=== PATIENT | male | born 1940 | race Caucasian/White ===

== ENCOUNTER 2019-06-10 09:38 | Outpatient (CLI) | payer MEDICARE, BC, SELFPAY ==
--- NOTE | 2019-06-10 08:55 | DI.RAD_ITS ---
EXAM: XR KNEE LT 4V AP,LAT,MONA,PAT INDICATION: knee pain. COMPARISON: No exams were available for comparison TECHNIQUE: 2D digital imaging was performed. FINDINGS: There is mild narrowing of the medial femoral tibial joint. There is mild periarticular spurring thr oughout. There is some spurring at the quadriceps insertion on the patella. Vascular calcifications are seen. IMPRESSION: Mild degenerative changes. DATA REPOSITORY: RADIATION DOSE DELIVERED:
== END 2019-06-10 09:58 ==
PROVIDERS: PCP Neuromusculoskeletal Medicine & OMM; Referring Provider Neuromusculoskeletal Medicine & OMM; Visit Provider Student in an Organized Health Care Education/Training Program
DX: M25.562 Pain in left knee (principal); M17.12 Unilateral primary osteoarthritis, left knee; M23.91 Unspecified internal derangement of right knee; M25.561 Pain in right knee; I10 Essential (primary) hypertension
CPT/HCPCS: 99203; 73564

== ENCOUNTER 2019-09-09 08:20 | Outpatient (CLI) | payer MEDICARE, BC, SELFPAY ==
[2019-09-10 18:41] LABS: COVID-19 RT-PCR UVMMC Result Negative (Negative)
== END 2019-09-09 08:40 ==
PROVIDERS: PCP Neuromusculoskeletal Medicine & OMM; Visit Provider Student in an Organized Health Care Education/Training Program
DX: Z11.59 Encounter for screening for other viral diseases (principal); Z01.818 Encounter for other preprocedural examination
CPT/HCPCS: U0003

== ENCOUNTER 2019-09-11 08:14 | Day surgery (SDC) | payer MEDICARE, BC, SELFPAY ==
[2019-09-11] VITALS (8 sets, daily range): BP systolic 85–160; BP diastolic 44–100; PULSE 55–76; RESP 16–18; TEMP 35.6–36.5; O2SAT 93–98
--- NOTE | 2019-09-11 07:26 | HPE_ITS ---
Date of service: 09/11/19 Assessment and Plan Assessment and plan (1) Internal derangement of right knee: Status: Acute Assessment and plan: Diagnostic right knee arthroscopy with indicated intervention. Details of surgery were discussed with patient as well as risks and pertinent anatomy. All questions were answered. History of Present Illness History of Present Illness Chief Complaint: Right knee pain Narrative: Jose R comes in today for a right knee arthroscopy. He has been dealing with right knee pain for many years. He has been using anti-inflammatories and physical therapy to continue being active on his right knee in spite of the pain. He is also used injections in the past which again helped his knee and asked to maintain most of his activities. His more specific complaint is that he is unable to snowboard at this time. He says that his pain gets worse with any twisting motion against trying to go down a hill on his snowboard. X-rays in the office did not reveal significant arthritis, and he is not a candidate for an MRI due to a trochlear implant. Dr. Ospina does offer a diagnostic right knee arthroscopy with intervention as indicated. Jose R agrees with this plan and is anxious to proceed. Pertinent Surgical Information Jose R has cardiac arrhythmia on his problem list, however, he denies any history of cardiac arrhythmias. Patient denies history of CVA, [place], angina, asthma, COPD, renal or liver disorders, hepatitis, bleeding disorders, diabetes, immune or thyroid disorders. No complications from anesthesia. Review of Systems Constitutional Constitutional: Denies fever(s) ENT Ears, Nose, Mouth, and Throat: Denies dizziness and Denies sore throat Cardiovascular Cardiovascular: Denies chest pain, Denies palpitations and Denies dyspnea Respiratory Respiratory: Denies cough and Denies dyspnea Gastrointestinal Gastrointestinal: Denies abdominal pain, Denies melena, Denies hematochezia, Denies diarrhea, Denies nausea and Denies vomiting Genitourinary Genitourinary: Denies hematuria and Denies dysuria Neurologic Neurologic: Denies dizziness Endocrine Endocrine: Denies palpitations [facility] Medical History Basal cell carcinoma of skin (Acute) Cardiac arrhythmia (Acute) Pt. denies having this. 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 was driving at time of assessment. Meds Home Medications and Allergies Home Medications Medication Instructions Recorded Confirmed Type bimatoprost 0.01 % eye drops 1 drp OP HS ml 06/10/19 09/09/19 History brinzolamide 1 % eye 1 drp OP BID ml 06/10/19 09/09/19 History drops,suspension Allergies Allergy/AdvReac Type Severity Reaction Status Date / Time No Known Allergies Allergy Verified 09/09/19 11:41 Exam Const General: cooperative and no acute distress Orientation: alert and awake [facility] Head: normocephalic and atraumatic General nose exam: no nasal discharge Eyes Conjunctivae: conjunctivae normal Sclera: sclerae normal Resp Effort & Inspection: normal respiratory effort Auscultation: clear to auscultation bilaterally and no wheezes Cardio Rate: regular rate Rhythm: regular rhythm Heart Sounds: S1 normal, S2 normal and no murmurs GI Palpation: soft, no hepatosplenomegaly and nontender Auscultation: normal bowel sounds
[2019-09-11] MEDS: Lactated Ringers 1,000 ML 80 ML IV (08:50)
[2019-09-11] MEDS: ceFAZolin 2 GM/50 ML BAG IVPB (09:59)
--- NOTE | 2019-09-11 10:11 | W.PM.DSUDISC ---
Discharge Plan Disposition Patient Disposition: HOME Condition: Good Discharge Details Reason For Visit: Right knee arthroscopy Attending Provider: Cristiano Ospina Primary Care Provider: Ramsey Cardenas Meds and New Rx's Prescriptions: New hydrocodone-acetaminophen 5-325 mg tablet 1 tab PO Q6H PRN (Reason: pain) Qty: 6 RF: 0 ibuprofen 600 mg tablet 600 mg PO TID PRN (Reason: pain) Qty: 30 RF: 0 acetaminophen 500 mg capsule 500 mg PO Q4H PRN (Reason: pain) Qty: 30 RF: 0 Continued Lumigan 0.01 % drops 1 drp OP HS RF: 0 Azopt 1 % drops,suspension 1 drp OP BID RF: 0 Discharge Instructions Stand Alone Forms: [facility] Knee Arthroscopy Referrals: Cristiano Ospina MD [ [facility]] - Activity:: Activity as Tolerated Remove Dressings/Wound Care:: 48 hours Shower/Bathe:: 48 hours Diet:: As Tolerated Discharge Orders Discharge Orders: Discharge Order (Routine); Ordered 09/11/19 Ordered By: Martínez Durant DS: Diagnosis Discharge Diagnosis (1) Internal derangement of right knee: Status: Acute
[2019-09-11] MEDS: Bupivacaine 0.5% Pres-Free 30 ML VIAL (10:23)
[2019-09-11] MEDS: HYDROcodone 5/Acetaminophen 325 TAB PO (12:29)
--- NOTE | 2019-09-11 13:19 | ROE_ITS ---
Date of service: 09/11/19 Time of Service: 11:01 Operative Note Operative Note DATE OF PROCEDURE: 09/11/19 PRE-OP DIAGNOSIS: Right Knee Internal Derangement POST-OP DIAGNOSIS: other (Right Medial and Lateral Meniscus Tears, T ricompartmental Chondromalacia) PROCEDURE: Right knee arthroscopic partial medial and lateral meniscectomies SURGEON: Cristiano Ospina ANESTHESIA: GETA ESTIMATED BLOOD LOSS: 0 PATHOLOGY: none sent TOURNIQUET TIME: 0 COMPLICATIONS: None Patient was transported to: PACU Patient's condition: stable Indications: I have seen Jose R in clinic for symptoms of a meniscus tear. Nonoperative measures were exhausted but disability and pain persisted. I discussed knee arthroscopy with meniscal intervention with the patient. I reviewed the risks of the procedure to include, but not limited to, bleeding, infection, pain, stiffness, damage to nerves or vessels, recurrence, blood clot. Despite these risks, the patient elected to proceed. 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 The consent was reviewed with the patient and signed. The history and physical was updated. All questions were answered. Jose R was taken back to the operating room. The patient was placed into the supine position on the operating room table. A nonsterile tourniquet was placed high onto the leg but not used. All bony prominences were well padded. Prophylactic antibiotics in the form of Cefazolin were administered. The right leg was then prepped with Chloraprep and draped in a standard fashion with stockinette and extremity drape. A timeout to confirm correct identity, side and site, procedure, allergies, anesthesia, and medical concerns was performed. The leg was placed into a pneumatic leg myles, [id number]. A standard lateral portal was made at the lateral border of the patella tendon in line with the inferior pole of the patella, soft spot. The skin and deep tissue was incised sharply and the blunt trochar was inserted atraumatically. A diagnostic arthroscopy was performed and the findings are listed above. The suprapatellar pouch had some moderate inflammatory changes. The patellofemoral articulation showed some Grade II chondromalacia over the apex and lateral facet as well as good tracking. The lateral gutter had no loose bodies and the medial gutter had no loose bodies but a small peripheral osteophyte on the femur. The knee was brought into some valgus stress in extension to open the medial compartment. A medial portal was made, localized by a spinal needle. The portal was created with an #11 blade through skin and capsule under direct visualization avoiding any meniscal injury. A probe was then inserted into the medial compartment. The medial compartment was fully inspected. The chondral surface of the tibia showed some Grade I/II changes throught but the surface of the femur showed a large area of exposed bone, Grade IV chondromalacia, mostly over the lateral aspect of the medial femur. The medial meniscus had a complex tear from the body into the root. There was a small vertical tear within the body and then a larger horizontal predominant tear from the horn to the root. After evaluation, the meniscus was debrided down to a stable base using a series of biters and arthroscopic gayle. It was probed afterwards to confirm that the tear had been removed and the meniscus was stable. The notch was then inspected which showed an intact ACL and an intact PCL. The leg was then brought into a figure of 4 position. The lateral compartment was fully inspected with the arthroscope and a probe. The chondral surface of the lateral femur showed Grade I/II changes. The chondral surface of the lateral tibia showed a large swatch of exposed bone, Grade IV chondromalacia, over the lateral most aspect of the tibia. The lateral meniscus had a displaced radial tear of the posterior horn that was detached from the root. This also had some complex tearing at the level of the root and horn. The peripheral fibers were still continguous between the horn and root and not full thickness. After evaluation, the meniscus was debrided down to a stable base using a series of biters and arthroscopic gayle. It was probed afterwards to confirm that the tear had been removed and the meniscus was stable. The arthroscope was brought back into the suprapatellar pouch and the leg was in full extension. The knee was thoroughly irrigated with the arthroscopic fluid on high flow and pressure. Inflow was stopped and excess fluid was removed. The wounds were closed with 4-0 Nylon. They were dressed with Xeroform, 4x4 gauze, ABD pad, Kerlix and an GILMER wrap. A cryo-cuff was applied. Jose R tolerated the procedure well and was returned to the Same Day Surgery area in a stable condition suffering no known complication.
== END 2019-09-11 13:17 | disposition home or self-care (01) ==
PROVIDERS: PCP Neuromusculoskeletal Medicine & OMM; Visit Provider Student in an Organized Health Care Education/Training Program
PROC: (CPT 29870; principal; 2019-09-11 10:00)
DX: M23.231 Derangement of other medial meniscus due to old tear or injury, right knee (principal); M23.261 Derangement of other lateral meniscus due to old tear or injury, right knee; M94.261 Chondromalacia, right knee
CPT/HCPCS: 29880; NC; E0114; J0131; J0690; J1100; J1885; J2001; J2370; J2405

== ENCOUNTER → 2019-09-27 07:42 | Outpatient (BNVA) | payer MEDICARE, BC, SELFPAY | PROVIDERS: PCP Neuromusculoskeletal Medicine & OMM; Referring Provider Neuromusculoskeletal Medicine & OMM; Visit Provider Student in an Organized Health Care Education/Training Program | DX: Z47.89 Encounter for other orthopedic aftercare (principal); M23.91 Unspecified internal derangement of right knee ==

== ENCOUNTER → 2019-10-25 08:01 | Outpatient (BNVA) | payer MEDICARE, BC, SELFPAY | PROVIDERS: PCP Neuromusculoskeletal Medicine & OMM; Referring Provider Neuromusculoskeletal Medicine & OMM; Visit Provider Student in an Organized Health Care Education/Training Program | DX: Z47.89 Encounter for other orthopedic aftercare (principal); M23.91 Unspecified internal derangement of right knee ==